=== PATIENT | male | born 1955 | race African-American/Black ===

== ENCOUNTER 2017-05-18 12:39 | Emergency (ER) | payer OTHER ==
[~2017-05-18] VITALS: Ht 195.6 cm; Wt 131.8 kg
[2017-05-18] MEDS ORDERED: LEVE500T53 PO (12:48)
[2017-05-18 12:53] LABS: GLUCOSE,POINT OF CARE 131 MG/DL (70-110)
[2017-05-18] MEDS ORDERED: KETOROLAC TROMETHAMINE 60 MG/2 ML VIAL IM ONE (14:45)
[2017-05-18 16:15] LABS: BASOPHILS % (AUTO) 0.5 % (0.0-2.0); EOSINOPHILS % (AUTO) 0.4 % (1.0-6.0); HEMATOCRIT 39.7 % (41-53); HEMOGLOBIN 13.1 g/dL (13.5-17.5); LYMPHOCYTES # (AUTO) 1.7 K/uL (1.0-4.8); LYMPHOCYTES % (AUTO) 24.2 % (22.0-44.0); MEAN CORPUSCULAR HEMOGLOBIN 28.3 pg (26.0-34.0); MEAN CORPUSCULAR HGB CONC 33.1 G/dL (31.0-37.0); MEAN CORPUSCULAR VOLUME 86 fL (80-100); MONOCYTES # (AUTO) 0.4 K/uL (0.1-1.0); MONOCYTES % (AUTO) 5.5 % (2.0-9.0); NEUTROPHILS # (AUTO) 4.8 K/uL (1.8-7.7); NEUTROPHILS % (AUTO) 69.4 % (40.0-70.0); PLATELET COUNT (AUTO) 171 K/uL (150-450); RED BLOOD CELL COUNT(AUTO) 4.64 MIL/uL (4.50-5.90)
[2017-05-18 16:25] LABS: ANION GAP 8 mmol/L (8-16); CALCIUM, TOTAL 10.2 mg/dL (8.8-10.5); CARBON DIOXIDE 32 mmol/L (22-29); CHLORIDE 104 mmol/L (98-107); CREATININE 1.14 mg/dL (0.60-1.30); GLOMERULAR FILTR. RATE CALC > 60 mL/min (>60); GLUCOSE,RANDOM 105 mg/dL (70-110); POTASSIUM 4.4 mmol/L (3.5-5.1); SODIUM SERUM 144 mmol/L (136-145); UREA NITROGEN, BLOOD 11 mg/dL (7-18)
[2017-05-18 16:28] LABS: PROTHROMBIN TIME 10.3 SEC (9.4-11.6)
[2017-05-18 16:37] LABS: B-TYPE NATRIURETIC PEPTIDE 16 pg/mL (0-100)
[2017-05-18 16:49] LABS: ALANINE AMINOTRANSFERASE 56 U/L (12-78); ALBUMIN 3.9 g/dL (3.4-5.0); ALKALINE PHOSPHATASE 85 U/L (46-116); ASPARTATE AMINOTRANSFERASE 38 U/L (15-37); BILIRUBIN,TOTAL 0.8 mg/dL (0.1-1.0); CREATINE KINASE MB 7.4 ng/mL (0-5); CREATINE KINASE, TOTAL 729 U/L (39-308); TOTAL PROTEIN, SERUM 8.2 g/dL (6.4-8.2)
[2017-05-18] MEDS ORDERED: FUROSEMIDE 20 MG TABLET PO ONE (18:30)
[2017-05-18] MEDS ORDERED: CEFTAROLINE 600 MG/D5W 250 ML IV ONE (18:30)
[2017-05-18 18:33] LABS: BILIRUBIN,URINE NEGATIVE (NEGATIVE); GLUCOSE, URINE (UA) NEGATIVE (NEGATIVE); KETONES,URINE NEGATIVE (NEGATIVE); LEUKOCYTE ESTERASE ,URINE NEGATIVE (NEGATIVE); NITRATE,URINE NEGATIVE (NEGATIVE); OCCULT BLOOD,URINE NEGATIVE (NEGATIVE); PROTEIN,URINE NEGATIVE (NEGATIVE); UROBILINOGEN,URINE 0.2 mg/dL (<=1.0)
[2017-05-18 19:00] LABS: APPEARANCE,URINE N (CLEAR)
[2017-05-18 20:05] VITALS: BP 139/79
== END 2017-05-18 20:21 | disposition home or self-care (01) ==
LOC: EMS 12:40
DX: L03.116 Cellulitis of left lower limb (principal); R60.0 Localized edema; I10 Essential (primary) hypertension
CPT/HCPCS: 36415; 71045; 80053; 81003; 82550; 82553; 82962; 83880; 84484; 85025; 85610; 85730; 93005; 93971; 96365; 96372; 99285; J0712; J1885

== ENCOUNTER 2018-11-05 14:47 | Emergency (ER) | payer OTHER ==
[~2018-11-05] VITALS: Ht 195.6 cm; Wt 150.0 kg
[~2018-11-05 14:47] MED LIST: CEFU250T87 PO; DSS100 PO; LACT1CAP70 PO; LEVE500T53 PO; MIRT15 PO; MULT-1203 PO
[2018-11-05] MEDS ORDERED: ATOR10TA84 PO (15:56)
[2018-11-05] MEDS ORDERED: ASPI81 PO (15:56)
[2018-11-05] MEDS ORDERED: LEVE500T53 PO (15:56)
[2018-11-05] MEDS ORDERED: TOLT2TAB2 PO (15:56)
[2018-11-05] MEDS ORDERED: METO25 PO (15:56)
[2018-11-05] MEDS ORDERED: AMLO10TA7 PO (15:56)
[2018-11-05] MEDS ORDERED: ARIP5TAB8 PO (15:56)
[2018-11-05] MEDS ORDERED: FOLI1 PO (15:56)
[2018-11-05] MEDS ORDERED: TELM40 PO (15:56)
[2018-11-05 17:06] VITALS: BP 128/74
[2018-11-05 17:08] LABS: BASOPHILS % (AUTO) 0.3 % (0.0-2.0); EOSINOPHILS % (AUTO) 1.6 % (1.0-6.0); HEMATOCRIT 40.4 % (41-53); HEMOGLOBIN 12.6 g/dL (13.5-17.5); LYMPHOCYTES # (AUTO) 1.2 K/uL (1.0-4.8); LYMPHOCYTES % (AUTO) 18.6 % (22.0-44.0); MEAN CORPUSCULAR HEMOGLOBIN 27.1 pg (26.0-34.0); MEAN CORPUSCULAR HGB CONC 31.1 G/dL (31.0-37.0); MEAN CORPUSCULAR VOLUME 87 fL (80-100); MONOCYTES # (AUTO) 0.6 K/uL (0.1-1.0); MONOCYTES % (AUTO) 9.3 % (2.0-9.0); NEUTROPHILS # (AUTO) 4.5 K/uL (1.8-7.7); NEUTROPHILS % (AUTO) 70.2 % (40.0-70.0); PLATELET COUNT (AUTO) 194 K/uL (150-450); RED BLOOD CELL COUNT(AUTO) 4.64 MIL/uL (4.50-5.90); RED CELL DISTRIBUTION WIDTH 16.1 % (11.5-14.5)
[2018-11-05 17:20] LABS: PROTHROMBIN TIME 10.3 SEC (9.4-11.6)
[2018-11-05 17:21] LABS: ANION GAP 9 mmol/L (8-16); CALCIUM, TOTAL 9.9 mg/dL (8.8-10.5); CARBON DIOXIDE 26 mmol/L (22-29); CHLORIDE 102 mmol/L (98-107); CREATININE 1.02 mg/dL (0.60-1.30); GLOMERULAR FILTR. RATE CALC > 60 mL/min (>60); GLUCOSE,RANDOM 115 mg/dL (70-110); POTASSIUM 3.9 mmol/L (3.5-5.1); SODIUM SERUM 137 mmol/L (136-145); UREA NITROGEN, BLOOD 17 mg/dL (7-18)
[2018-11-05 17:27] LABS: ALANINE AMINOTRANSFERASE 61 U/L (12-78); ALBUMIN 3.6 g/dL (3.4-5.0); ALKALINE PHOSPHATASE 84 U/L (46-116); ASPARTATE AMINOTRANSFERASE 41 U/L (15-37); B-TYPE NATRIURETIC PEPTIDE 26 pg/mL (0-100); BILIRUBIN,TOTAL 0.5 mg/dL (0.1-1.0); TOTAL PROTEIN, SERUM 8.3 g/dL (6.4-8.2)
== END 2018-11-05 19:35 | disposition left against medical advice (07) ==
LOC: EMS 14:50
DX: S09.90XA Unspecified injury of head, initial encounter (principal); E78.00 Pure hypercholesterolemia, unspecified; I10 Essential (primary) hypertension; F20.9 Schizophrenia, unspecified; F17.210 Nicotine dependence, cigarettes, uncomplicated; Z79.82 Long term (current) use of aspirin; W06.XXXA Fall from bed, initial encounter; Y93.89 Activity, other specified; Y92.89 Other specified places as the place of occurrence of the external cause; Y99.8 Other external cause status
CPT/HCPCS: 93005; 99406

== ENCOUNTER 2019-02-11 16:33 | Inpatient (IN) | payer OTHER ==
[~2019-02-11] VITALS: Ht 195.6 cm; Wt 179.5 kg
[~2019-02-11 16:33] MED LIST changes: +AMLO10TA7 PO; +ARIP5TAB8 PO; +ASPI81 PO; +ATOR10TA84 PO; -CEFU250T87 PO; +FOLI1 PO; -LACT1CAP70 PO; +METO25 PO; -MIRT15 PO; +TELM40 PO; +TOLT2TAB2 PO
[2019-02-11] MEDS ORDERED: DOCU-275 PO (18:42)
[2019-02-11] MEDS ORDERED: 0.9% SODIUM CHLORIDE 10 ML SYRINGE IVP PRN (18:45)
[2019-02-11] MEDS ORDERED: ACETAMINOPHEN 325 MG TABLET PO ONE (18:45)
[2019-02-11 19:08] LABS: BASOPHILS % (AUTO) 0.3 % (0.0-2.0); EOSINOPHILS % (AUTO) 0.5 % (1.0-6.0); HEMATOCRIT 36.2 % (41-53); HEMOGLOBIN 11.6 g/dL (13.5-17.5); LYMPHOCYTES # (AUTO) 1.7 K/uL (1.0-4.8); LYMPHOCYTES % (AUTO) 13.8 % (22.0-44.0); MEAN CORPUSCULAR HEMOGLOBIN 26.6 pg (26.0-34.0); MEAN CORPUSCULAR HGB CONC 32.1 G/dL (31.0-37.0); MEAN CORPUSCULAR VOLUME 83 fL (80-100); MONOCYTES # (AUTO) 0.9 K/uL (0.1-1.0); MONOCYTES % (AUTO) 7.1 % (2.0-9.0); NEUTROPHILS # (AUTO) 9.5 K/uL (1.8-7.7); NEUTROPHILS % (AUTO) 78.3 % (40.0-70.0); PLATELET COUNT (AUTO) 124 K/uL (150-450); RED BLOOD CELL COUNT(AUTO) 4.38 MIL/uL (4.50-5.90); RED CELL DISTRIBUTION WIDTH 17.1 % (11.5-14.5)
[2019-02-11] MEDS ORDERED: SODIUM CHLORIDE 0.9% 1,000 ML IV ONE (19:15)
[2019-02-11] MEDS ORDERED: ACETAMINOPHEN 1000 MG/ISO-OSM 100 ML IV ONE (19:15)
[2019-02-11] MEDS ORDERED: PIPERACILLIN/TAZO 3.375 GM/D5W 50 ML IV ONE (19:15)
[2019-02-11] MEDS ORDERED: VANCOMYCIN HCL 1 GM/D5% WATER 200 ML IV ONE (19:15)
[2019-02-11] MEDS ORDERED: DILTIAZEM HCL 5 MG/ML 5 ML VIAL IVP ONE (19:15)
[2019-02-11 19:21] LABS: INR 1.1 (0.9-1.1); PROTHROMBIN TIME 11.6 SEC (9.4-11.6)
[2019-02-11 19:34] LABS: CALCIUM, TOTAL 9.1 mg/dL (8.8-10.5); CREATININE 3.08 mg/dL (0.60-1.30); POTASSIUM 3.8 mmol/L (3.5-5.1)
[2019-02-11] MEDS ORDERED: ACETAMINOPHEN 500 MG TABLET ONE (19:37)
[2019-02-11 19:43] LABS: LACTIC ACID 1.7 mmol/L (0.4-2.0)
[2019-02-11 20:06] LABS: APPEARANCE,URINE TURBID (CLEAR); GLUCOSE, URINE (UA) NEGATIVE (NEGATIVE); KETONES,URINE TRACE mg/dL (NEGATIVE); LEUKOCYTE ESTERASE ,URINE NEGATIVE (NEGATIVE); NITRATE,URINE NEGATIVE (NEGATIVE); OCCULT BLOOD,URINE LARGE (NEGATIVE); PROTEIN,URINE SEE CONFIRM (NEGATIVE)
[2019-02-11 20:07] LABS: BILIRUBIN,TOTAL 0.8 mg/dL (0.1-1.0); TOTAL PROTEIN, SERUM 8.3 g/dL (6.4-8.2)
[2019-02-11 20:10] LABS: BILIRUBIN,URINE PRELIM. POSITIVE (NEGATIVE)
[2019-02-11 20:21] LABS: SULFOSALICYLIC ACID,URINE 3+ (Negative)
[2019-02-11 20:24] LABS: BACTERIA,URINE Moderate /HPF (None Seen)
[2019-02-11 20:25] LABS: SQUAMOUS EPITHELIAL CELL,UR Rare /LPF (None Seen)
[2019-02-11 20:27] LABS: AMORPHOUS SEDIMENT,UR Moderate /LPF (None Seen)
[2019-02-11] MEDS ORDERED: BISACODYL 10 MG RECTAL RECTAL SUPPOSITORY PR PRN (21:30)
[2019-02-11] MEDS ORDERED: ALBUTEROL SULFATE 2.5 MG/0.5 ML NEB SOLUTION NEB PRN (21:30)
[2019-02-11] MEDS ORDERED: LORazepam 2 MG/ML VIAL IVP ONE (22:00)
[2019-02-11] MEDS ORDERED: HALOPERIDOL LACTATE 5 MG/ML VIAL IVP ONE (22:00)
[2019-02-11] MEDS: OxyCODONE HCL/ACETAMINOPHEN 5-325 MG TABLET PO PRN (23:27)
[2019-02-12] VITALS (12 sets, daily range): BP systolic 90–158; BP diastolic 53–94
[2019-02-12] MEDS ORDERED: VANCOMYCIN HCL 1 GM/D5% WATER 200 ML IV PRN (00:15)
[2019-02-12] MEDS ORDERED: VANCOMYCIN HCL 1.5 GM in DEXTROSE 5%-WATER 250 ML IV ONE (00:30)
[2019-02-12] MEDS ORDERED: AMIODARONE HCL 150 MG in DEXTROSE 5%-WATER 97 ML IV ONE (00:45)
[2019-02-12] MEDS ORDERED: AMIODARONE HCL 360 MG in DEXTROSE 5%-WATER 242.8 ML IV ONE (01:00)
[2019-02-12] MEDS ORDERED: INFLUENZA VIRUS VACCINE QVS 2019-20 (3YR+)/PF 60 MCG/0.5 ML SYRINGE IM ONE (01:45)
[2019-02-12] MEDS ORDERED: PNEUMOCOCCAL VACCINE POLYVALENT 0.5 ML VIAL [PPSV23] IM ONE (03:15)
[2019-02-12] MEDS: ACETAMINOPHEN 325 MG TABLET PO PRN ×3 (04:01→17:39)
[2019-02-12] MEDS: PIPERACILLIN/TAZO 3.375 GM/D5W 50 ML IV SCH ×3 (05:52→17:40)
[2019-02-12] MEDS ORDERED: AMIODARONE HCL 540 MG in DEXTROSE 5%-WATER 239.2 ML IV ONE (07:00)
[2019-02-12] MEDS: HEPARIN SODIUM,PORCINE 5,000 UNITS/ML VIAL SQ SCH ×2 (08:57→22:40)
[2019-02-12] MEDS: LevETIRAcetam 500 MG TABLET PO SCH ×2 (08:57→22:40)
[2019-02-12] MEDS: ASPIRIN 81 MG CHEWABLE TABLET PO SCH (08:58)
[2019-02-12] MEDS: FAMOTIDINE 20 MG TABLET PO SCH (08:58)
[2019-02-12] MEDS: VITAMIN B COMP/VIT C/FOLIC ACID CAPSULE PO SCH (08:58)
[2019-02-12] MEDS: DOCUSATE SODIUM 100 MG CAPSULE PO SCH ×2 (09:00→22:37)
[2019-02-12 11:40] LABS: CALCIUM, TOTAL 8.7 mg/dL (8.8-10.5); CREATININE 2.35 mg/dL (0.60-1.30); POTASSIUM 4.1 mmol/L (3.5-5.1)
[2019-02-12] MEDS: DILTIAZEM HCL 125 MG in DEXTROSE 5%-WATER 100 ML IV PRN (13:55)
[2019-02-12 14:55] LABS: INFLUENZA TYPE A NEGATIVE FOR TYPE A (NEGATIVE); INFLUENZA TYPE B NEGATIVE FOR TYPE B (NEGATIVE)
[2019-02-13] VITALS: BP 124/69
[2019-02-13] MEDS ORDERED: CloNIDine HCL 0.1 MG TABLET PO PRN
[2019-02-13] MEDS: DILTIAZEM HCL 125 MG in DEXTROSE 5%-WATER 100 ML IV PRN (01:00)
[2019-02-13] MEDS ORDERED: AMIODARONE HCL 750 MG in DEXTROSE 5%-WATER 485 ML IV SCH (01:00)
[2019-02-13] MEDS: PIPERACILLIN/TAZO 3.375 GM/D5W 50 ML IV SCH ×5 (06:58→23:44)
[2019-02-13 08:00] VITALS: BP 116/88
[2019-02-13] MEDS ORDERED: LORazepam 2 MG/ML VIAL IVP PRN (08:15)
[2019-02-13] MEDS: DOCUSATE SODIUM 100 MG CAPSULE PO SCH ×2 (09:00→20:55)
[2019-02-13] MEDS ORDERED: METOPROLOL SUCCINATE 25 MG ER TABLET PO SCH (09:00)
[2019-02-13] MEDS: VITAMIN B COMP/VIT C/FOLIC ACID CAPSULE PO SCH (09:17)
[2019-02-13] MEDS: FAMOTIDINE 20 MG TABLET PO SCH (09:17)
[2019-02-13] MEDS: HEPARIN SODIUM,PORCINE 5,000 UNITS/ML VIAL SQ SCH ×2 (09:17→21:11)
[2019-02-13] MEDS: ASPIRIN 81 MG CHEWABLE TABLET PO SCH (09:19)
[2019-02-13] MEDS: LevETIRAcetam 500 MG TABLET PO SCH ×2 (09:19→21:11)
[2019-02-13 09:52] LABS: EOSINOPHILS % (AUTO) 0.7 % (1.0-6.0); HEMATOCRIT 36.7 % (41-53); LYMPHOCYTES # (AUTO) 1.3 K/uL (1.0-4.8); LYMPHOCYTES % (AUTO) 10.1 % (22.0-44.0); MEAN CORPUSCULAR HEMOGLOBIN 26.6 pg (26.0-34.0); MEAN CORPUSCULAR HGB CONC 32.5 G/dL (31.0-37.0); MEAN CORPUSCULAR VOLUME 82 fL (80-100); MONOCYTES # (AUTO) 0.7 K/uL (0.1-1.0); MONOCYTES % (AUTO) 5.9 % (2.0-9.0); NEUTROPHILS # (AUTO) 10.3 K/uL (1.8-7.7); NEUTROPHILS % (AUTO) 82.3 % (40.0-70.0); PLATELET COUNT (AUTO) 143 K/uL (150-450); RED CELL DISTRIBUTION WIDTH 17.3 % (11.5-14.5)
[2019-02-13] MEDS: ACETAMINOPHEN 325 MG TABLET PO PRN ×2 (10:00→22:09)
[2019-02-13 10:04] LABS: CALCIUM, TOTAL 8.9 mg/dL (8.8-10.5); CREATININE 2.1 mg/dL (0.60-1.30); POTASSIUM 3.8 mmol/L (3.5-5.1)
[2019-02-13 12:00] VITALS: BP 85/53
[2019-02-13] MEDS ORDERED: VANCOMYCIN HCL 1 GM/D5% WATER 200 ML IV ONE (13:00)
[2019-02-13] MEDS ORDERED: AMIODARONE HCL 150 MG in DEXTROSE 5%-WATER 97 ML IV ONE (13:00)
[2019-02-13 13:09] LABS: MAGNESIUM 2.4 mg/dL (1.80-2.40)
[2019-02-13] MEDS: METOPROLOL SUCCINATE 25 MG ER TABLET PO SCH (13:15)
[2019-02-13] MEDS ORDERED: AMIODARONE HCL 360 MG in DEXTROSE 5%-WATER 242.8 ML IV ONE (13:20)
[2019-02-13 13:22] LABS: PHOSPHORUS 2.7 mg/dL (2.5-4.9)
[2019-02-13 14:45] LABS: ABG A-A DIFF O2 616.5 mmHg (10-20.0); ABG BASE EXCESS -0.2 mmol/L (-2.0-3.0); ABG CARBOXYHEMOGLOBIN 0.5 % (0.0-1.5); ABG METHEMOGLOBIN 0.3 % (0.0-1.5); ABG OXYGEN CONTENT 13.9 mL/dL (15.0-23.0); ABG PCO2 44 mmHg (35-45); ABG PH 7.377 (7.35-7.450); ABG TOTAL HEMOGLOBIN 11.8 G/dL (12.0-18.0); PO2, ARTERIAL BG 52.3 mmHg (79.0-87.0); SOURCE, BLOOD GAS ARTERIAL; TEMPERATURE, FAHRENHEIT, BG 99.1 FAHREN (96.0-98.6)
[2019-02-13 14:47] LABS: ABG OXYGEN SATURATION 84.7 % (95.0-98.0); O2 DEVICE,BLOOD GAS NON REBREATHER (ROOM AIR); SITE, BLOOD GAS RT RADIAL
[2019-02-13 16:00] VITALS: BP 112/56
[2019-02-13 18:36] LABS: PROTEIN,URINE RANDOM 220 mg/dL (0-11.9); SODIUM,URINE RANDOM 13 mmol/l (20-110)
[2019-02-13] MEDS: VANCOMYCIN HCL 750 MG in DEXTROSE 5%-WATER 250 ML IV SCH (19:06)
[2019-02-13 19:23] LABS: UREA NITROGEN,URINE RANDOM 1632 mg/dL (350-1000)
[2019-02-13 19:27] LABS: CREATININE,URINE RANDOM 223.7 mg/dL (30.0-125.0)
[2019-02-13] MEDS ORDERED: AMIODARONE HCL 540 MG in DEXTROSE 5%-WATER 239.2 ML IV ONE (19:30)
[2019-02-13 20:00] VITALS: BP 90/26
[2019-02-14] VITALS: BP 129/75
[2019-02-14 04:00] VITALS: BP 124/76
[2019-02-14] MEDS: PIPERACILLIN/TAZO 3.375 GM/D5W 50 ML IV SCH ×3 (05:20→17:29)
[2019-02-14] MEDS: VANCOMYCIN HCL 750 MG in DEXTROSE 5%-WATER 250 ML IV SCH ×2 (06:01→18:36)
[2019-02-14 08:00] VITALS: BP 125/16
[2019-02-14] MEDS: LevETIRAcetam 500 MG TABLET PO SCH ×2 (08:48→20:52)
[2019-02-14] MEDS: HEPARIN SODIUM,PORCINE 5,000 UNITS/ML VIAL SQ SCH ×2 (08:48→20:52)
[2019-02-14] MEDS: FAMOTIDINE 20 MG TABLET PO SCH (08:48)
[2019-02-14] MEDS: VITAMIN B COMP/VIT C/FOLIC ACID CAPSULE PO SCH (08:48)
[2019-02-14] MEDS: ARIPiprazole 5 MG TABLET PO SCH (08:49)
[2019-02-14] MEDS: METOPROLOL SUCCINATE 25 MG ER TABLET PO SCH (08:49)
[2019-02-14] MEDS: ASPIRIN 81 MG CHEWABLE TABLET PO SCH (08:49)
[2019-02-14] MEDS: DOCUSATE SODIUM 100 MG CAPSULE PO SCH ×2 (09:03→21:00)
[2019-02-14 12:00] VITALS: BP 124/77
[2019-02-14] MEDS ORDERED: AMIODARONE HCL 750 MG in DEXTROSE 5%-WATER 485 ML IV SCH ×4 (14:30)
[2019-02-14] MEDS: IPRATROPIUM BROMIDE 0.5 MG/2.5 ML NEB SOLUTION NEB SCH ×3 (15:10→23:19)
[2019-02-14] MEDS: ALBUTEROL SULFATE 2.5 MG/0.5 ML NEB SOLUTION NEB SCH ×3 (15:10→23:20)
[2019-02-14 16:00] VITALS: BP 113/65
[2019-02-14] MEDS: ACETAMINOPHEN 325 MG TABLET PO PRN (16:12)
[2019-02-14 20:00] VITALS: BP 124/70
[2019-02-15] MEDS: PIPERACILLIN/TAZO 3.375 GM/D5W 50 ML IV SCH ×5 (00:03→23:29)
[2019-02-15] MEDS ORDERED: SODIUM CHLORIDE 0.9% 250 ML IV ONE (00:04)
[2019-02-15] MEDS: ACETAMINOPHEN 325 MG TABLET PO PRN ×3 (03:00→23:29)
[2019-02-15] MEDS: ALBUTEROL SULFATE 2.5 MG/0.5 ML NEB SOLUTION NEB SCH ×6 (04:05→23:00)
[2019-02-15] MEDS: IPRATROPIUM BROMIDE 0.5 MG/2.5 ML NEB SOLUTION NEB SCH ×6 (04:05→23:00)
[2019-02-15] MEDS: OxyCODONE HCL/ACETAMINOPHEN 5-325 MG TABLET PO PRN (05:54)
[2019-02-15] MEDS: FAMOTIDINE 20 MG TABLET PO SCH (08:34)
[2019-02-15] MEDS: DOCUSATE SODIUM 100 MG CAPSULE PO SCH ×2 (08:35→20:21)
[2019-02-15] MEDS: LevETIRAcetam 500 MG TABLET PO SCH ×2 (08:35→20:22)
[2019-02-15] MEDS: ARIPiprazole 5 MG TABLET PO SCH (08:35)
[2019-02-15] MEDS: VITAMIN B COMP/VIT C/FOLIC ACID CAPSULE PO SCH (08:35)
[2019-02-15] MEDS: ASPIRIN 81 MG CHEWABLE TABLET PO SCH (08:35)
[2019-02-15] MEDS: VANCOMYCIN HCL 750 MG in DEXTROSE 5%-WATER 250 ML IV SCH (08:36)
[2019-02-15] MEDS: HEPARIN SODIUM,PORCINE 5,000 UNITS/ML VIAL SQ SCH ×2 (08:37→20:22)
[2019-02-15 09:11] VITALS: BP 120/66
[2019-02-15 13:32] LABS: BASOPHILS % (AUTO) 0.6 % (0.0-2.0); EOSINOPHILS % (AUTO) 1.2 % (1.0-6.0); HEMATOCRIT 31.5 % (41-53); HEMOGLOBIN 10.1 g/dL (13.5-17.5); LYMPHOCYTES # (AUTO) 1.5 K/uL (1.0-4.8); MEAN CORPUSCULAR HEMOGLOBIN 26.1 pg (26.0-34.0); MEAN CORPUSCULAR VOLUME 82 fL (80-100); MONOCYTES # (AUTO) 0.8 K/uL (0.1-1.0); MONOCYTES % (AUTO) 6.8 % (2.0-9.0); NEUTROPHILS # (AUTO) 9.2 K/uL (1.8-7.7); NEUTROPHILS % (AUTO) 78.4 % (40.0-70.0); PLATELET COUNT (AUTO) 109 K/uL (150-450); RED BLOOD CELL COUNT(AUTO) 3.85 MIL/uL (4.50-5.90); RED CELL DISTRIBUTION WIDTH 17.3 % (11.5-14.5)
[2019-02-15] MEDS: FUROSEMIDE 40 MG/4 ML VIAL IVP SCH (13:37)
[2019-02-15 13:41] LABS: ANION GAP 7 mmol/L (8-16); CALCIUM, TOTAL 8.4 mg/dL (8.8-10.5); CARBON DIOXIDE 25 mmol/L (22-29); CHLORIDE 101 mmol/L (98-107); GLOMERULAR FILTR. RATE CALC > 60 mL/min (>60); GLUCOSE,RANDOM 182 mg/dL (70-110); POTASSIUM 3.8 mmol/L (3.5-5.1); SODIUM SERUM 133 mmol/L (136-145); UREA NITROGEN, BLOOD 17 mg/dL (7-18)
[2019-02-15 13:47] LABS: ALANINE AMINOTRANSFERASE 129 U/L (12-78); ALBUMIN 2.2 g/dL (3.4-5.0); ALKALINE PHOSPHATASE 66 U/L (46-116); ASPARTATE AMINOTRANSFERASE 77 U/L (15-37); BILIRUBIN,TOTAL 0.7 mg/dL (0.1-1.0); TOTAL PROTEIN, SERUM 7.2 g/dL (6.4-8.2)
[2019-02-15 16:21] VITALS: BP 126/77
[2019-02-15 20:00] VITALS: BP 123/69
[2019-02-15] MEDS: AMIODARONE HCL 200 MG TABLET PO SCH (20:22)
[2019-02-16] VITALS (7 sets, daily range): BP systolic 131–143; BP diastolic 61–73
[2019-02-16] MEDS: ALBUTEROL SULFATE 2.5 MG/0.5 ML NEB SOLUTION NEB SCH ×6 (03:00→23:22)
[2019-02-16] MEDS: IPRATROPIUM BROMIDE 0.5 MG/2.5 ML NEB SOLUTION NEB SCH ×6 (03:00→23:22)
[2019-02-16] MEDS ORDERED: SODIUM CHLORIDE 0.9% 0 ML ONE (06:48)
[2019-02-16] MEDS ORDERED: SODIUM CHLORIDE 0.9% 250 ML IV ONE (06:51)
[2019-02-16] MEDS: PIPERACILLIN/TAZO 3.375 GM/D5W 50 ML IV SCH ×4 (06:56→23:13)
[2019-02-16] MEDS: DOCUSATE SODIUM 100 MG CAPSULE PO SCH ×2 (09:00→20:48)
[2019-02-16] MEDS: VANCOMYCIN HCL 750 MG in DEXTROSE 5%-WATER 250 ML IV SCH (09:05)
[2019-02-16] MEDS: FAMOTIDINE 20 MG TABLET PO SCH (09:06)
[2019-02-16] MEDS: ASPIRIN 81 MG CHEWABLE TABLET PO SCH (09:06)
[2019-02-16] MEDS: HEPARIN SODIUM,PORCINE 5,000 UNITS/ML VIAL SQ SCH ×2 (09:06→20:49)
[2019-02-16] MEDS: VITAMIN B COMP/VIT C/FOLIC ACID CAPSULE PO SCH (09:06)
[2019-02-16] MEDS: AMIODARONE HCL 200 MG TABLET PO SCH ×2 (09:06→20:49)
[2019-02-16] MEDS: LevETIRAcetam 500 MG TABLET PO SCH ×2 (09:07→20:48)
[2019-02-16] MEDS: ARIPiprazole 5 MG TABLET PO SCH (09:07)
[2019-02-16] MEDS: FUROSEMIDE 40 MG/4 ML VIAL IVP SCH (09:07)
[2019-02-16] MEDS: ACETAMINOPHEN 325 MG TABLET PO PRN (20:50)
[2019-02-17] MEDS: ALBUTEROL SULFATE 2.5 MG/0.5 ML NEB SOLUTION NEB SCH ×6 (03:06→23:00)
[2019-02-17] MEDS: IPRATROPIUM BROMIDE 0.5 MG/2.5 ML NEB SOLUTION NEB SCH ×6 (03:06→23:00)
[2019-02-17 04:23] VITALS: BP 128/93
[2019-02-17] MEDS: PIPERACILLIN/TAZO 3.375 GM/D5W 50 ML IV SCH ×3 (05:26→17:43)
[2019-02-17] MEDS: VANCOMYCIN HCL 750 MG in DEXTROSE 5%-WATER 250 ML IV SCH (08:00)
[2019-02-17] MEDS: HEPARIN SODIUM,PORCINE 5,000 UNITS/ML VIAL SQ SCH ×2 (09:00→21:10)
[2019-02-17] MEDS: FAMOTIDINE 20 MG TABLET PO SCH (09:00)
[2019-02-17] MEDS: LevETIRAcetam 500 MG TABLET PO SCH ×2 (09:00→21:09)
[2019-02-17] MEDS: ARIPiprazole 5 MG TABLET PO SCH (09:00)
[2019-02-17] MEDS: FUROSEMIDE 40 MG/4 ML VIAL IVP SCH (09:00)
[2019-02-17] MEDS: DOCUSATE SODIUM 100 MG CAPSULE PO SCH ×2 (09:00→21:09)
[2019-02-17] MEDS: AMIODARONE HCL 200 MG TABLET PO SCH ×2 (09:00→21:10)
[2019-02-17] MEDS: ASPIRIN 81 MG CHEWABLE TABLET PO SCH (09:00)
[2019-02-17] MEDS: VITAMIN B COMP/VIT C/FOLIC ACID CAPSULE PO SCH (09:00)
[2019-02-17 11:22] VITALS: BP 125/57
[2019-02-17] MEDS ORDERED: SODIUM CHLORIDE 0.9% 250 ML IV ONE (13:46)
[2019-02-17] MEDS: SILVER 45 ML GEL TP SCH (17:08)
[2019-02-17 17:10] VITALS: BP 152/95
[2019-02-17 19:36] VITALS: BP 143/77
[2019-02-17] MEDS: VANCOMYCIN HCL 1 GM/D5% WATER 200 ML IV SCH (21:03)
[2019-02-18] MEDS: PIPERACILLIN/TAZO 3.375 GM/D5W 50 ML IV SCH ×4 (00:56→18:00)
[2019-02-18 01:00] VITALS: BP 146/73
[2019-02-18] MEDS: ALBUTEROL SULFATE 2.5 MG/0.5 ML NEB SOLUTION NEB SCH ×4 (03:00→15:00)
[2019-02-18] MEDS: IPRATROPIUM BROMIDE 0.5 MG/2.5 ML NEB SOLUTION NEB SCH ×4 (03:00→15:00)
[2019-02-18 05:11] VITALS: BP 132/71
[2019-02-18 07:36] VITALS: BP 149/75
[2019-02-18] MEDS: VANCOMYCIN HCL 1 GM/D5% WATER 200 ML IV SCH (08:00)
[2019-02-18] MEDS: AMIODARONE HCL 200 MG TABLET PO SCH (08:41)
[2019-02-18] MEDS: VITAMIN B COMP/VIT C/FOLIC ACID CAPSULE PO SCH (08:42)
[2019-02-18] MEDS: ARIPiprazole 5 MG TABLET PO SCH (08:42)
[2019-02-18] MEDS: DOCUSATE SODIUM 100 MG CAPSULE PO SCH (08:42)
[2019-02-18] MEDS: ASPIRIN 81 MG CHEWABLE TABLET PO SCH (08:42)
[2019-02-18] MEDS: LevETIRAcetam 500 MG TABLET PO SCH (08:42)
[2019-02-18] MEDS: FAMOTIDINE 20 MG TABLET PO SCH (08:42)
[2019-02-18] MEDS: HEPARIN SODIUM,PORCINE 5,000 UNITS/ML VIAL SQ SCH (08:44)
[2019-02-18] MEDS: FUROSEMIDE 40 MG/4 ML VIAL IVP SCH (09:00)
[2019-02-18 11:00] VITALS: BP 129/90
[2019-02-18] MEDS: SILVER 45 ML GEL TP SCH (12:15)
== END 2019-02-18 19:38 | DRG 720 ==
LOC: EMS 16:33 → ICU 22:00 → 5N 02-16 06:20
PROVIDERS: ADMIT Internal Medicine; ATTEND Internal Medicine
DX: A41.9 Sepsis, unspecified organism (principal); J96.91 Respiratory failure, unspecified with hypoxia; N17.0 Acute kidney failure with tubular necrosis; I47.2 Ventricular tachycardia; D69.6 Thrombocytopenia, unspecified; E66.01 Morbid (severe) obesity due to excess calories; N18.4 Chronic kidney disease, stage 4 (severe); E87.1 Hypo-osmolality and hyponatremia; I49.01 Ventricular fibrillation; I46.9 Cardiac arrest, cause unspecified; F20.9 Schizophrenia, unspecified; M62.82 Rhabdomyolysis; I13.10 Hypertensive heart and chronic kidney disease without heart failure, with stage 1 through stage 4 chronic kidney disease, or unspecified chronic kidney disease; I48.0 Paroxysmal atrial fibrillation; G40.909 Epilepsy, unspecified, not intractable, without status epilepticus; L03.115 Cellulitis of right lower limb; D64.9 Anemia, unspecified; J44.9 Chronic obstructive pulmonary disease, unspecified; G47.33 Obstructive sleep apnea (adult) (pediatric); E78.00 Pure hypercholesterolemia, unspecified; F17.210 Nicotine dependence, cigarettes, uncomplicated; L03.116 Cellulitis of left lower limb; R74.0 Nonspecific elevation of levels of transaminase and lactic acid dehydrogenase [LDH]; E78.5 Hyperlipidemia, unspecified; I49.9 Cardiac arrhythmia, unspecified; R80.9 Proteinuria, unspecified; R31.9 Hematuria, unspecified; I48.91 Unspecified atrial fibrillation; I89.0 Lymphedema, not elsewhere classified; Z91.19 Patient's noncompliance with other medical treatment and regimen; Z68.42 Body mass index [BMI] 45.0-49.9, adult
CPT/HCPCS: 36600; 76770; 82570; 82805; 83605; 83735; 83930; 83935; 84100; 84145; 84156; 84300; 84540; 87040; 87070; 87081; 87086; 87205; 87804; 93005; 93306; 93970; 94640; 94660; 96365; 96375; 97162; 97530; 99291; G0238; G0378; J0131; J0282; J1630; J1644; J1940; J2060; J2543; J3370; J3490; J7030; J7050; J7060

== ENCOUNTER → 2022-11-15 | Outpatient (CLI) | payer MEDICARE, OTHER ==
[~2022-11-15] MED LIST changes: +AMLO-258 PO; -AMLO10TA7 PO; +ARIP5TAB37 PO; -ARIP5TAB8 PO; +ASPI-1450 PO; -ASPI81 PO; +ATOR10TA PO; -ATOR10TA84 PO; +DOCU-385 PO; -DSS100 PO; +FOLI-130 PO; -FOLI1 PO; +LEVE500T20 PO; -LEVE500T53 PO
[2022-11-15 14:02] VITALS: BP 152/91; PULSE 83; RESP 20; O2SAT 94
== END | disposition home or self-care (01) ==
LOC: SRCNTR 13:31
PROVIDERS: ATTEND Hospitalist
DX: F20.9 Schizophrenia, unspecified (principal); E11.9 Type 2 diabetes mellitus without complications; I10 Essential (primary) hypertension; M62.81 Muscle weakness (generalized); E78.5 Hyperlipidemia, unspecified; E66.9 Obesity, unspecified; N32.81 Overactive bladder; F31.9 Bipolar disorder, unspecified; F41.9 Anxiety disorder, unspecified; R26.81 Unsteadiness on feet
CPT/HCPCS: G0463